=== PATIENT | female | born 1955 | race Caucasian/White ===

== ENCOUNTER 2022-05-08 05:41 | Inpatient (IN) | payer MEDICARE, BC ==
[2022-05-02 13:45] LABS: BASOPHILS # (AUTO) 0.1 X10'3 (0-0.2); BASOPHILS % (AUTO) 1.2 % (0-1); EOSINOPHILS # (AUTO) 0.1 X10'3 (0-0.9); EOSINOPHILS % (AUTO) 1.1 % (0-6); LYMPHOCYTES # (AUTO) 1.9 X10'3 (1.1-4.8); LYMPHOCYTES % (AUTO) 38.9 % (21-51); MEAN CORPUSCULAR HEMOGLOBIN 33.2 PG (27.0-31.0); MEAN CORPUSCULAR HGB CONC 33.9 g/dL (33.0-36.5); MEAN CORPUSCULAR VOLUME 97.9 FL (78-98); MEAN PLATELET VOLUME 7.7 FL (7.4-10.4); MONOCYTES # (AUTO) 0.6 X10'3 (0-0.9); MONOCYTES % (AUTO) 12.4 % (2-12); NEUTROPHILS # (AUTO) 2.3 X10'3 (1.8-7.7); NEUTROPHILS % (AUTO) 46.4 % (42-75); PRE OP HEMATOCRIT 41.7 % (35.0-45.0); PRE OP HEMOGLOBIN 14.1 g/dL (12.0-16.0); PRE OP PLATELET COUNT 341 X10'3 (140-440); RED BLOOD COUNT 4.25 X10'6 (4.20-5.60); RED CELL DISTRIBUTION WIDTH 12.9 % (11.5-14.5)
[2022-05-02 13:57] LABS: PRE OP INR 1.1 INR; PRE OP PROTIME 11.4 SECONDS (9.0-12.0)
[2022-05-02 14:12] LABS: ALBUMIN 4.3 G/DL (3.4-5.0); ALKALINE PHOSPHATASE 73 IU/L (46-116); BLOOD UREA NITROGEN 17 MG/DL (7-18); BUN/CREATININE RATIO 18.7 (6.6-38.0); CALCIUM 9.4 MG/DL (8.5-10.1); CHLORIDE 100 MMOL/L (99-107); CREATININE 0.91 MG/DL (0.40-0.90); PRE OP ALT 36 U/L (30-65); PRE OP AST 37 U/L (10-37); PRE OP BILIRUB, TOTAL 0.6 MG/DL (0.0-1.0); PRE OP GLUCOSE 113 MG/DL (70-104); PRE OP POTASSIUM 4.2 MMOL/L (3.4-5.1); TOTAL CARBON DIOXIDE 24.3 MMOL/L (24-32); TOTAL PROTEIN 8.5 G/DL (6.4-8.2); eGFR 61 ML/MIN
[2022-05-02 14:16] LABS: PRE OP ANION GAP 13 (8-16); PRE OP SODIUM 137 MMOL/L (135-145)
[2022-05-08] VITALS (17 sets, daily range): BP systolic 63–121; BP diastolic 40–92
[~2022-05-08] VITALS: Ht 149.9 cm; Wt 62.5 kg
[~2022-05-08 05:41] MED LIST: ALPR-624 PO; ASCO100T12 PO; DOCUMENT DATE & TIME OF BETA-BLOCKER PO ONE; ELECTROLYTE; LEVO100T9 PO; MAGN400C PO; METO-467 PO; MULT-1085 PO; SIMV-45 PO; SPIR100T5 PO; TRAZ-251 PO; ceFAZolin inj. 2,000 MG in dextrose 5%-water 100 ML IV ONE; famotidine 20mg tablet PO ONE; oxyCODONE SR 10mg (sust. release) tab -2 tabs (20mg) PO ONE; ringers solution, lacted 1,000 ML IV SCH; vancomycin/NS 1 GM in NS 250 ML IV ONE
--- NOTE | 2022-05-08 06:30 | NUR ---
CSM INTACT BILAT LE, PT ABLE TO COMPLETE ALL 5 SHOWERS, INTERNET INFO VIEWED
[2022-05-08] MEDS: potassium cl 20mEq in 1/2 NS 1,000 ML IV SCH ×3 (06:45→22:45)
[2022-05-08] MEDS ORDERED: HYDROmorphone 1 mg/ml syringe IV PRN (06:45)
[2022-05-08] MEDS ORDERED: bisacodyl 10mg suppository rectal RC PRN (06:45)
[2022-05-08] MEDS ORDERED: acetaminophen 325mg tablet PO PRN (06:45)
[2022-05-08] MEDS ORDERED: magnesium hydroxide 30ml (MOM) UD suspension PO PRN (06:45)
[2022-05-08] MEDS ORDERED: HYDROmorphone inj. 0.5 MG/0.5 ML DISP.SYRIN IV PRN (06:45)
[2022-05-08] MEDS ORDERED: naloxone 0.4 mg/ml inj IV PRN (06:45)
[2022-05-08] MEDS ORDERED: ondansetron/PF 4mg/2ml inj IV PRN ×2 (06:45→07:05)
[2022-05-08] MEDS ORDERED: diphenhydrAMINE 25mg capsule PO PRN ×2 (06:45)
[2022-05-08] MEDS ORDERED: morphine 4 MG/ML inj SYRINge IV PRN (07:05)
[2022-05-08] MEDS ORDERED: fentaNYL/PF 50MCG/1 ML 2ML syringe IV PRN ×2 (07:05)
[2022-05-08] MEDS ORDERED: labetalol 20mg/4ml (5mg/ml) syringe IV PRN (07:05)
[2022-05-08] MEDS ORDERED: hydrALAZINE 20mg/ml inj. IV PRN (07:05)
[2022-05-08] MEDS ORDERED: morphine 2 MG/ML inj. syringe IV PRN (07:05)
[2022-05-08] MEDS ORDERED: ringers solution, lacted 1,000 ML IV SCH (07:05)
[2022-05-08] MEDS ORDERED: LEVO100T PO (07:18)
[2022-05-08] MEDS ORDERED: ceFAZolin/D5W- 1GM premix 50 ML IV SCH (08:00)
[2022-05-08] MEDS: gabapentin 300mg capsule PO SCH ×3 (08:00→20:52)
[2022-05-08] MEDS: ascorbic acid 500mg tablet PO SCH ×2 (08:00→20:52)
[2022-05-08] MEDS ORDERED: vancomycin/NS 1 GM ADD-VANTAGE 250 ML IV SCH (08:00)
[2022-05-08] MEDS: dextrose 5%-normal saline 1,000 ML IV SCH (08:15)
[2022-05-08] MEDS: aspirin 325mg tablet PO SCH (08:30)
[2022-05-08] MEDS ORDERED: tranexamic acid inj. 1,000 MG in 0.7% saline 100 ML PMX IV ONE (09:08)
[2022-05-08] MEDS ORDERED: epiNEPHrine 1 mg/ml inj ONE (09:33)
[2022-05-08] MEDS ORDERED: BUPIVAcaine 0.5% inj/PF 60 ML ONE (09:33)
[2022-05-08] MEDS ORDERED: cloNIDine hcl/PF 100mcg/ml inj ONE (09:33)
[2022-05-08] MEDS ORDERED: ketorolac trometh. 30mg/ml inj. ONE (09:33)
[2022-05-08] MEDS ORDERED: vancomycin 1,000mg inj ONE (09:45)
[2022-05-08] MEDS ORDERED: MIDAZolam 1mg/ml 10ml vial ONE (10:29)
[2022-05-08] MEDS ORDERED: propofol inj 20 ML IV ONE ×2 (10:31)
[2022-05-08] MEDS ORDERED: BUPIVAcaine 0.5% inj/PF 30 ml vial IJ ONE (11:02)
[2022-05-08] MEDS ORDERED: ROPIVAcaine 0.5% (5mg/ml) 30ml vial ONE (11:13)
--- NOTE | 2022-05-08 11:55 | NUR ---
Received from OR via , accompanied by Anesthesiologist and report given by Anesthesiolgist. PATIENT WAKING UP, DENIES PAIN, V/S WNL, SCD ON 20G PIV TO LUE, NEUROVASCULAR CHECKS INTACT. LEFT KNEE WRAP ANA DRESSING CDI WITH COLD PACK.
--- NOTE | 2022-05-08 12:45 | NUR ---
PATIENT A&OX4, DENIES PAIN, V/S WNL, SCD ON 20G PIV TO LUE, NEUROVASCULAR CHECKS INTACT. LEFT KNEE WRAP ANA DRESSING CDI WITH COLD PACK. TAKEN TO 8323B WITH ALL BELONGINGS AND HOOKED UP TO MONITORS IN ROOM AND REPORT GIVEN TO RN WHO HAS TAKEN OVER PATIENT CARE.
[2022-05-08] MEDS ORDERED: ROPIVAcaine 0.2%/PF PUMP/bolus 545 ML ADDCANAL SCH ×2 (13:00→13:18)
[2022-05-08] MEDS ORDERED: ROPIVAcaine 0.2% (10 MG/5 ML) BOLUS INJECTION ADDCANAL PRN (13:00)
[2022-05-08] MEDS ORDERED: NORMAL SALINE IV ONE (14:30)
[2022-05-08] MEDS ORDERED: TRANEXAMIC ACID IV ONE (14:30)
[2022-05-08] MEDS: ceFAZolin/D5W- 1GM premix 50 ML IV SCH (15:48)
[2022-05-08] MEDS: oxyCODONE/APAP 10/325mg tablet PO PRN ×2 (15:51→21:05)
--- NOTE | 2022-05-08 18:26 | NUR ---
Patient report given to ALESSANDRA Coates. Placed call to MD regarding post op antibiotics as no vanco was ordered. 1 gram of vancomycin ordered for 2000 per telephone orders.
--- NOTE | 2022-05-08 18:30 | NUR ---
Patient in room ORTHO 4012. I have received report from Constance Pelletier and had the opportunity to ask questions and assume patient care. Addendum: 05/08/22 at 2333 by Aminata Faria RN Amended: Links added.
[2022-05-08] MEDS ORDERED: vancomycin/NS 1 GM ADD-VANTAGE 250 ML IV ONE (20:00)
--- NOTE | 2022-05-08 20:40 | NUR ---
Pt. awake A & O with denies c/o pain at this time ON/ Q in place and pt able to self administer the medication via pressing the button. Lt knee drsg CDI and CMS present at this time.Call light within reach and bed in low position. Addendum: 05/09/22 at 0700 by Aminata Faria RN Amended: Links added.
[2022-05-08] MEDS: sennosides 8.6mg tablet PO SCH (20:52)
[2022-05-08] MEDS ORDERED: traZODone 50mg tablet PO PRN (21:00)
[2022-05-09] MEDS: ceFAZolin/D5W- 1GM premix 50 ML IV SCH (01:20)
[2022-05-09 03:38] VITALS: BP 120/92
[2022-05-09] MEDS: dextrose 5%-normal saline 1,000 ML IV SCH (04:15)
[2022-05-09 06:00] VITALS: BP 122/64
--- NOTE | 2022-05-09 06:10 | NUR ---
Problems reprioritized. Patient report given, questions answered & plan of care reviewed with Constance Pelletier RN. Addendum: 05/09/22 at 0704 by Aminata Faria RN Amended: Links added.
[2022-05-09 06:12] LABS: BASOPHILS % (AUTO) 0.6 % (0-1); EOSINOPHILS % (AUTO) 0.6 % (0-6); HEMATOCRIT 30.6 % (35.0-45.0); HEMOGLOBIN 10.4 g/dl (12.0-16.0); LYMPHOCYTES # (AUTO) 1.1 X10'3 (1.1-4.8); LYMPHOCYTES % (AUTO) 20.3 % (21-51); MEAN CORPUSCULAR HEMOGLOBIN 33.5 PG (27.0-31.0); MEAN CORPUSCULAR HGB CONC 33.9 g/dL (33.0-36.5); MEAN PLATELET VOLUME 7.8 FL (7.4-10.4); MONOCYTES % (AUTO) 17.9 % (2-12); NEUTROPHILS # (AUTO) 3.3 X10'3 (1.8-7.7); NEUTROPHILS % (AUTO) 60.6 % (42-75); PLATELET COUNT 215 X10'3 (140-440); RED BLOOD COUNT 3.09 X10'6 (4.20-5.60); RED CELL DISTRIBUTION WIDTH 12.9 % (11.5-14.5); WHITE BLOOD COUNT 5.4 X10'3 (4.5-11.0)
[2022-05-09 06:20] LABS: ANION GAP 10 (8-16); CHLORIDE 101 MMOL/L (99-107); POTASSIUM 4.2 MMOL/L (3.5-5.1); SODIUM 134 MMOL/L (135-145); TOTAL CARBON DIOXIDE 23.5 MMOL/L (24-32)
--- NOTE | 2022-05-09 06:32 | NUR ---
Patient in room ORTHO 4013. I have received report from Amniata APARICIO and had the opportunity to ask questions and assume patient care.
[2022-05-09] MEDS: oxyCODONE/APAP 10/325mg tablet PO PRN ×4 (06:36→21:38)
[2022-05-09] MEDS: potassium cl 20mEq in 1/2 NS 1,000 ML IV SCH ×3 (06:45→19:58)
[2022-05-09] MEDS: ascorbic acid 500mg tablet PO SCH ×2 (07:53→19:48)
[2022-05-09] MEDS: levoTHYROXINE 100mcg tablet PO SCH (07:54)
[2022-05-09] MEDS: atorvastatin 20mg tablet PO SCH (07:54)
[2022-05-09] MEDS: gabapentin 300mg capsule PO SCH ×3 (07:55→19:48)
[2022-05-09] MEDS: aspirin 325mg tablet PO SCH (07:56)
[2022-05-09] MEDS: metoprolol tartrate 50mg tablet PO SCH ×2 (07:58→19:45)
[2022-05-09] MEDS: spironolactone 25 MG tablet PO SCH (07:58)
[2022-05-09] MEDS: celeCOXIB 100mg capsule PO SCH ×2 (08:09→19:49)
[2022-05-09] MEDS: ALPRAZolam 0.5mg tablet PO PRN ×2 (08:13→19:53)
[2022-05-09 08:21] LABS: PLATELET ESTIMATE NORMAL; TOTAL CELLS COUNTED 100
--- NOTE | 2022-05-09 08:42 | NUR ---
Patient highly anxious; medicated with prn xanax, patient complaining of 10/10 pain despite pain medication. Patient insisted on putting on own clothes. Very fixated on her swelling reassured her that this is all normal after post operative knee replacements. Coaxed patient into bed to gatch to help with swelling, bed alarm applied for safety.
--- NOTE | 2022-05-09 09:40 | NUR ---
I wen RN agree with JERMAIN Cuellar
[2022-05-09 10:00] VITALS: BP 115/62
--- NOTE | 2022-05-09 12:15 | NUR ---
Noted pt s/p left TKA. Written protein education with RD contact information placed in patient's chart. Will remain available. Addendum: 05/09/22 at [address] Amended: Links added.
[2022-05-09 14:00] VITALS: BP 103/46
[2022-05-09 18:00] VITALS: BP 101/69
--- NOTE | 2022-05-09 18:23 | NUR ---
Problems reprioritized. Patient report given, questions answered & plan of care reviewed with Karlee APARICIO.
[2022-05-09] MEDS: sennosides 8.6mg tablet PO SCH (19:49)
[2022-05-09] MEDS ORDERED: celeCOXIB 100mg capsule PO SCH ×2 (20:00)
[2022-05-09 22:00] VITALS: BP 107/81
[2022-05-10] MEDS: oxyCODONE/APAP 10/325mg tablet PO PRN (05:18)
[2022-05-10 06:00] VITALS: BP 95/54
--- NOTE | 2022-05-10 06:20 | NUR ---
Problems reprioritized. Patient report given, questions answered & plan of care reviewed with ALESSANDRA Boles.
[2022-05-10 06:35] LABS: BASOPHILS % (AUTO) 0.6 % (0-1); EOSINOPHILS # (AUTO) 0.1 X10'3 (0-0.9); EOSINOPHILS % (AUTO) 1.9 % (0-6); HEMATOCRIT 27.9 % (35.0-45.0); HEMOGLOBIN 9.5 g/dl (12.0-16.0); LYMPHOCYTES # (AUTO) 1.5 X10'3 (1.1-4.8); LYMPHOCYTES % (AUTO) 23.9 % (21-51); MEAN CORPUSCULAR HEMOGLOBIN 34.1 PG (27.0-31.0); MEAN CORPUSCULAR VOLUME 100.3 FL (78-98); MEAN PLATELET VOLUME 8.1 FL (7.4-10.4); MONOCYTES # (AUTO) 0.9 X10'3 (0-0.9); MONOCYTES % (AUTO) 14.4 % (2-12); NEUTROPHILS # (AUTO) 3.7 X10'3 (1.8-7.7); NEUTROPHILS % (AUTO) 59.2 % (42-75); PLATELET COUNT 185 X10'3 (140-440); RED BLOOD COUNT 2.78 X10'6 (4.20-5.60); RED CELL DISTRIBUTION WIDTH 12.5 % (11.5-14.5); WHITE BLOOD COUNT 6.2 X10'3 (4.5-11.0)
[2022-05-10] MEDS: celeCOXIB 100mg capsule PO SCH (07:47)
[2022-05-10] MEDS: atorvastatin 20mg tablet PO SCH (07:47)
[2022-05-10] MEDS: gabapentin 300mg capsule PO SCH (07:47)
[2022-05-10] MEDS: levoTHYROXINE 100mcg tablet PO SCH (07:47)
[2022-05-10] MEDS: ascorbic acid 500mg tablet PO SCH (07:47)
[2022-05-10] MEDS: metoprolol tartrate 50mg tablet PO SCH (07:48)
[2022-05-10] MEDS: aspirin 325mg tablet PO SCH (07:48)
[2022-05-10] MEDS: spironolactone 25 MG tablet PO SCH (07:49)
[2022-05-10 10:01] VITALS: BP 106/70
== END 2022-05-10 10:30 | disposition home or self-care (01) | DRG 470 ==
LOC: PAS 05:41 → ORTHO 4S 06:49
PROVIDERS: ADMIT Orthopaedic Surgery; ATTEND Orthopaedic Surgery
PROC: 0SRD069 Replacement of Left Knee Joint with Oxidized Zirconium on Polyethylene Synthetic Substitute, Cemented, Open Approach (ICD-10-PCS; 2022-05-08)
PROC: 3E0T3BZ Introduction of Anesthetic Agent into Peripheral Nerves and Plexi, Percutaneous Approach (ICD-10-PCS; principal; 2022-05-08 09:55)
DX: M17.12 Unilateral primary osteoarthritis, left knee (principal); I10 Essential (primary) hypertension; K74.60 Unspecified cirrhosis of liver; Z79.82 Long term (current) use of aspirin; Z79.890 Hormone replacement therapy; Z79.899 Other long term (current) drug therapy
CPT/HCPCS: 36415; 73560; 80051; 80053; 82948; 84443; 85007; 85025; 85610; 85730; 86885; 86900; 86901; 87081; 97110; 97116; 97161; 97530; A4215; A7000; C1713; C1776; G0378; J0171; J0690; J0735; J1885; J2250; J2704; J2795; J3370; J3480; J3490; J7060; J7120; S0020

== ENCOUNTER 2022-07-04 13:56 | Emergency (ER) | payer MEDICARE, BC ==
[~2022-07-04] VITALS: Ht 149.9 cm; Wt 55.5 kg
[~2022-07-04 13:56] MED LIST changes: -DOCUMENT DATE & TIME OF BETA-BLOCKER PO ONE; +LEVO100T PO; -LEVO100T9 PO; -ceFAZolin inj. 2,000 MG in dextrose 5%-water 100 ML IV ONE; -famotidine 20mg tablet PO ONE; -oxyCODONE SR 10mg (sust. release) tab -2 tabs (20mg) PO ONE; -ringers solution, lacted 1,000 ML IV SCH; -vancomycin/NS 1 GM in NS 250 ML IV ONE
[2022-07-04 14:13] LABS: BASOPHILS % (AUTO) 0.5 % (0-1); EOSINOPHILS % (AUTO) 0.1 % (0-6); HEMATOCRIT 45.5 % (35.0-45.0); HEMOGLOBIN 15.4 g/dl (12.0-16.0); LYMPHOCYTES # (AUTO) 2.6 X10'3 (1.1-4.8); LYMPHOCYTES % (AUTO) 26.7 % (21-51); MEAN CORPUSCULAR HEMOGLOBIN 32.8 PG (27.0-31.0); MEAN CORPUSCULAR HGB CONC 33.8 g/dL (33.0-36.5); MEAN CORPUSCULAR VOLUME 97.2 FL (78-98); MEAN PLATELET VOLUME 7.2 FL (7.4-10.4); MONOCYTES # (AUTO) 1.1 X10'3 (0-0.9); NEUTROPHILS # (AUTO) 6.1 X10'3 (1.8-7.7); NEUTROPHILS % (AUTO) 61.7 % (42-75); PLATELET COUNT 247 X10'3 (140-440); RED BLOOD COUNT 4.68 X10'6 (4.20-5.60); RED CELL DISTRIBUTION WIDTH 13.6 % (11.5-14.5); WHITE BLOOD COUNT 9.9 X10'3 (4.5-11.0)
[2022-07-04 14:33] LABS: ALANINE AMINOTRANSFERASE 39 U/L (12-78); ALKALINE PHOSPHATASE 90 IU/L (46-116); ANION GAP 11 (8-16); ASPARTATE AMINO TRANSFERASE 45 U/L (10-37); BILIRUBIN,TOTAL 1.5 MG/DL (0.1-1.0); BLOOD UREA NITROGEN 19 MG/DL (7-18); CHLORIDE 93 MMOL/L (99-107); CREATININE 0.95 MG/DL (0.40-0.90); GLUCOSE 130 MG/DL (70-104); SODIUM 132 MMOL/L (135-145); TOTAL CARBON DIOXIDE 28.1 MMOL/L (24-32); TOTAL PROTEIN 8.2 G/DL (6.4-8.2); eGFR 58 ML/MIN
--- NOTE | 2022-07-04 14:39 | NUR ---
LAB CALLED, K 3.0 INFORMED ISRRAEL EDWARDS
[2022-07-04] MEDS ORDERED: ondansetron/PF 4mg/2ml inj IV ONE (20:15)
[2022-07-04] MEDS ORDERED: normal saline 1000ml 1,000 ML IV ONE (20:15)
[2022-07-04] MEDS ORDERED: pantoprazole 40MG/NS 100ML BAG 100 ML IV ONE (20:15)
[2022-07-04] MEDS ORDERED: POTASSIUM BICARB 20meq eff tab 20 MEQ TABLET.EFF PO ONE (20:20)
[2022-07-04] MEDS ORDERED: proCHLORperazine 10 MG/2 ml inj IV ONE (21:25)
[2022-07-04] MEDS ORDERED: metoclopramide 5 mg/ml inj IV ONE (21:50)
[2022-07-04] MEDS ORDERED: diphenhydrAMINE 50 mg/ml inj IV ONE (21:50)
[2022-07-04 22:01] VITALS: BP 158/89
[2022-07-04] MEDS ORDERED: ONDA8TAB13 PO (22:32)
== END 2022-07-04 22:46 | disposition home or self-care (01) ==
LOC: ER 13:56
DX: R11.2 Nausea with vomiting, unspecified (principal)
CPT/HCPCS: 36415; 80053; 84484; 85025; 96365; 96375; 99284; C9113; J0780; J1200; J2405; J2765; J7030